=== PATIENT | male | born 1960 | race African-American/Black ===

== ENCOUNTER → 2018-02-27 | Day surgery (SDC) | payer BC ==
[~2018-02-27] MED LIST: BACITRACIN 50,000 UNIT VIAL ONE; BUPIVACAINE HCL 0.5% INJ 30 ML VIAL INJ ONE; CEFAZOLIN SOD 2 GM/D5W 50ML 50 ML IV ONE; DEXAMETHASONE SOD PHOS INJ 4 MG/ML VIAL ONE; FENTANYL CITRATE/PF 100MCG/2 ML INJ ONE; ISOFLURANE INHAL SOLN 250 ML BTL INH ONE; KETOROLAC TROMETHAMINE 30 MG/ML VIAL ONE; LISINOPRIL10 MG PO; ONDANSETRON HCL INJ 2 MG/ML VIAL ONE; PROPOFOL IV EMULSION 10 MG/ML 20 ML VIAL ONE
[2018-02-27 10:15] VITALS: BP 123/81
--- NOTE | 2018-02-28 15:14 | Operative Report ---
DATE OF PROCEDURE: February 27, 2018 PREOPERATIVE DIAGNOSIS: Dislocated right great toe metatarsophalangeal joint. POSTOPERATIVE DIAGNOSIS: Dislocated right great toe metatarsophalangeal joint. PROCEDURE PERFORMED: The patient underwent a 1. Closed reduction of the right great toe metatarsophalangeal joint dislocation. 2. Percutaneous pinning of the right great toe metatarsophalangeal joint. WHISKEY REGAUGER: Neha Gillette. ANESTHESIA: General endotracheal intubation anesthesia. INTRAVENOUS FLUIDS: As per the anesthesia record. OPERATIVE PROCEDURE IN DETAIL: Mr. Mooney was taken to the operating room and placed in supine position on the operating table. Following induction of general anesthesia as well as endotracheal intubation, the patient's right lower extremity was examined under anesthesia and he was found to have an obvious deformity of his right foot. The proximal phalanx of the right great toe was dislocated dorsally. This was easily palpable at the time of his surgery. The patient's lower extremity was prepped and draped in standard surgical fashion. The case was begun by gently manipulating the right great toe and providing distraction and gently realigning the great toe proximal phalanx with the metatarsal. This was achieved in a closed fashion. Fluoroscopic evaluation of the metatarsophalangeal joint confirmed reduction of the joint. There were no associated fractures. A 0.062 K-wire was then inserted from distal to proximal, transfixing the metatarsophalangeal joint in its reduced position. The position of that pin as well as reduction of the dislocation was again assessed using fluoroscopy and found to be appropriate. The patient's pin was dressed sterilely, and he was placed in a well-padded splint. He was awakened and taken to the postanesthesia care unit in stable condition. Neha Gillette acted as the housekeeper/laundry assistant for this case and was necessary for both prepping and draping the patient as well as the positioning of the foot that allowed this case to be successful. Job#: [id number] JAVI
== END | disposition home or self-care (01) ==
LOC: OR 06:28
PROVIDERS: ATTEND Specialist
DX: S93.121A Dislocation of metatarsophalangeal joint of right great toe, initial encounter (principal); W23.0XXA Caught, crushed, jammed, or pinched between moving objects, initial encounter; Y92.410 Unspecified street and highway as the place of occurrence of the external cause; I10 Essential (primary) hypertension; Z01.810 Encounter for preprocedural cardiovascular examination
CPT/HCPCS: 28636; 76000; 93005; J1100; J1885; J2405; C1713; J0690